=== PATIENT | male | born 1965 | race Caucasian/White ===

== ENCOUNTER 2018-12-25 01:59 | Emergency (ER) | payer BC ==
[~2018-12-25] VITALS: Ht 182.9 cm; Wt 76.4 kg
[2018-12-25] MEDS ORDERED: PERC5TAB12 PO (02:07)
[2018-12-25] MEDS ORDERED: IBUP80TA PO (02:07)
[2018-12-25] MEDS ORDERED: ZOFR4TAB16 PO (02:07)
[2018-12-25] MEDS ORDERED: NS 1,000 ML IV ONE (03:15)
[2018-12-25] MEDS ORDERED: ONDANSETRON 4MG/2ML VIAL (J2405) IV ONE (03:15)
[2018-12-25 03:49] LABS: BASO % 0.1 % (0.0-1.0); EOS % 0.1 % (0.0-3.0); HEMATOCRIT 40.1 % (42.0-52.0); HEMOGLOBIN 14.3 g/dl (13.5-17.5); LYMPH # 1.2 10^3/uL (1.5-5.0); LYMPH % 11.6 % (24.0-44.0); MEAN CORPUSCULAR HEMOGLOBIN 31.8 pg (27.0-33.0); MEAN CORPUSCULAR HGB CONC 35.7 g/dl (32.0-36.5); MEAN CORPUSCULAR VOLUME 89.3 fl (80.0-96.0); MONO # 0.7 10^3/uL (0.0-0.8); MONO % 6.5 % (0.0-5.0); NEUTROPHILS # 8.1 10^3/uL (1.5-8.5); NEUTROPHILS % 81.3 % (36.0-66.0); PLATELET COUNT, AUTOMATED 203 10^3/uL (150-450); RED BLOOD COUNT 4.49 10^6/uL (4.30-6.10)
[2018-12-25 04:17] LABS: ALBUMIN 3.9 GM/DL (3.2-5.2); ALT/SGPT 36 U/L (12-78); BILIRUBIN,DIRECT 0.3 MG/DL (0.0-0.2); BILIRUBIN,TOTAL 1.3 MG/DL (0.2-1.0); BLOOD UREA NITROGEN 25 MG/DL (7-18); C REACTIVE PROTEIN QUANTITATIV 0.38 MG/DL (0.00-0.30); CALCIUM LEVEL 8.7 MG/DL (8.5-10.1); CARBON DIOXIDE LEVEL 26 MEQ/L (21-32); CHLORIDE LEVEL 102 MEQ/L (98-107); CREATININE FOR GFR 0.91 MG/DL (0.70-1.30); GLOMERULAR FILTRATION RATE > 60.0 (>56); GLUCOSE, FASTING 108 MG/DL (70-100); LIPASE 77 U/L (73-393); POTASSIUM SERUM 3.5 MEQ/L (3.5-5.1); SODIUM LEVEL 138 MEQ/L (136-145); TOTAL PROTEIN 6.3 GM/DL (6.4-8.2)
[2018-12-25 04:19] LABS: INFLUENZA A AMPLIFICATION NEGATIVE (NEGATIVE); INFLUENZA B AMPLIFICATION NEGATIVE (NEGATIVE)
[2018-12-25 04:53] LABS: ERYTHROCYTE SEDIMENTATION RATE 2 mm/hr (0-20)
--- NOTE | 2018-12-25 07:04 | REP ---
Clinical: Nontraumatic hip pain. Technique: Frontal view of the pelvis with neutral and frog lateral views of the left hip. Findings: Osseous structures and joint spaces are intact and normal. Hip joints appear symmetric on frontal pelvic radiograph. No acute fracture dislocation. No evidence for healed injury. No significant degenerative or congenital abnormalities are appreciated. Surrounding soft tissues are unremarkable. Impression: Normal pelvis and left hip series. Electronically Signed by Bishnu Key MD 12/25/2018 06:56 A
--- NOTE | 2018-12-25 07:09 | REP ---
Clinical: Pain. Technique: AP, lateral, bilateral oblique and coned-down views of the lumbosacral spine. Findings: Alignment and lordosis maintained. No acute fracture / compression injury or subluxation. Moderate multilevel degenerative changes include endplate sclerosis with minimal marginal spurring, mild disc space narrowing and mild/moderate hypertrophic facet changes. No obvious spondylolysis. Impression: Mild/moderate multilevel degenerative spondylosis. Electronically Signed by Bishnu Key MD 12/25/2018 07:01 A
[2018-12-25] MEDS ORDERED: PROHANCE 279.3MG/ML 15ML VIAL (A9576) As Ordered ONE (07:21)
--- NOTE | 2018-12-25 08:47 | REP ---
MRI lumbar spine without and with IV contrast: History: Rule out diskitis. No comparison lumbar spine MRI study. Comparison radiographs are from December 25, 2018. Technique: Sagittal and axial T1 and T2-weighted scans are acquired in the usual fashion with and without fat saturation. Sequences include spin echo, turbo spin-echo, and STIR imaging sequences. The gadolinium enhancement dose is 50 ml of intravenous ProHance. MRI findings: There are six lumbar-type vertebral bodies. 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 There is considerable motion artifact on several of the sequences, most prominently the postcontrast sequences and T2 axial sequence. This does impair image quality. Patient motion between sequences apparently causes some misalignment of the axial images relative to the disc spaces. Vertebral body heights are preserved. Alignment is normal. There is no evidence of spondylolysis or spondylolisthesis. The tip of the conus is normal in appearance and position at the at T12-L1. There is degenerative narrowing of the L3-4 and to a lesser extent L4-5 disc spaces. There are reactive marrow changes on either side of the 03/04 disc posteriorly and to the left. There is no evidence of disc protrusion. Diffuse disc bulging is seen however indenting the ventral margin of the thecal sac. No central canal stenosis or foraminal narrowing is appreciated although there is some foraminal segment disc bulging bilaterally at L3-4. There is some contrast enhancement along the posterior margin of the bulging L3-4 disc. At L4-5, there is mild diffuse disc bulging as well. No central canal stenosis or foraminal narrowing is seen. There is mild facet hypertrophy bilaterally. The L5-S1 level shows no evidence of disc protrusion, central canal stenosis or foraminal narrowing. At L2-L3, there is disc narrowing. There are reactive marrow changes on either side of the L2-3 disc and there is evidence of a Schmorl's node formation on both sides of the disc with surrounding edema and some contrast enhancement. The end plates are not visibly eroded. There is some T2 hyperintense signal in the disc. No paravertebral inflammation is appreciated. Findings are felt to be most compatible with atypical degenerative disc marrow signal intensity changes, possibly acute Schmorl's node formation. Early diskitis is a less likely possibility. At L1-2, disc space height is normal. Signal intensity is preserved. There is some degenerative disc narrowing at T12-L1. No other disc protrusion is seen. Impression: 1. There is considerable motion related image degradation with this study. 2. There are atypical signal intensity changes in the L2-3 disc and in the adjacent endplates including contrast enhancement, however there is no endplate erosion or destruction and no paravertebral inflammation changes are seen. Findings are felt to be most compatible with atypical degenerative disc changes. Early diskitis cannot be completely excluded. Consider follow-up if symptoms and concern for diskitis persists. 3. There is diffuse disc bulging at L3-4 and to a lesser extent, L4-5. Facet hypertrophy is noted at several levels. 4. Please note that there are six lumbar type vertebrae the most cephalic of which has been designated as T12. Electronically Signed by Hector Feldman MD 12/25/2018 08:39 A
[2018-12-25 09:37] VITALS: BP 122/74
--- NOTE | 2018-12-25 19:35 | ED PDOC ---
Post-Departure Follow-Up dr han faxed formal report of mri ls spine for fu Noah Gastelum MD Dec 25, 2018 19:35
== END 2018-12-25 09:39 | disposition home or self-care (01) ==
LOC: M ED 01:59
DX: M54.5 Low back pain (principal); R11.10 Vomiting, unspecified; R56.9 Unspecified convulsions; M51.9 Unspecified thoracic, thoracolumbar and lumbosacral intervertebral disc disorder
CPT/HCPCS: 36415; 72110; 72158; 73502; 80048; 80076; 81001; 83690; 85025; 85652; 86140; 87502; 96361; 96374; 99284; A9576; J2405

== ENCOUNTER → 2021-10-02 | Outpatient (CLI) | payer BC ==
[~2021-10-02] MED LIST: IBUP80TA PO; PERC5TAB12 PO; ZOFR4TAB16 PO
== END ==
LOC: M RAD 16:52
PROVIDERS: ATTEND Family Medicine
DX: Z12.2 Encounter for screening for malignant neoplasm of respiratory organs (principal)

== ENCOUNTER 2022-08-14 10:05 | Day surgery (SDC) | payer BC ==
[~2022-08-14] VITALS: Ht 182.9 cm; Wt 74.8 kg
[~2022-08-14 10:05] MED LIST changes: +NS 1,000 ML IV ONE
[2022-08-14] MEDS ORDERED: propofoL 200 MG/20 ML VIAL As Ordered ONE ×3 (12:39→13:16)
[2022-08-14] MEDS ORDERED: LIDOCAINE 2% MDV 20ML VIAL As Ordered ONE (12:39)
[2022-08-14] MEDS ORDERED: ePHEDrine SULFATE 25 MG/5 ML(5MG/ML) SYRINGE As Ordered ONE (12:47)
[2022-08-14 13:57] VITALS: BP 149/70
[2022-08-14] MEDS ORDERED: LIDOCAINE 2% 100MG/5ML SDV (FOR ANES.) As Ordered ONE (14:10)
== END 2022-08-14 13:59 | disposition home or self-care (01) ==
LOC: M OPP 10:05
PROVIDERS: ATTEND Internal Medicine Gastroenterology
DX: Z12.11 Encounter for screening for malignant neoplasm of colon (principal); D12.6 Benign neoplasm of colon, unspecified; K64.0 First degree hemorrhoids; K57.30 Diverticulosis of large intestine without perforation or abscess without bleeding

== ENCOUNTER → 2024-03-21 | Outpatient (CLI) | payer BC ==
[~2024-03-21] MED LIST changes: -NS 1,000 ML IV ONE
[2024-03-21 09:44] LABS: BASO # 0.1 10^3/uL (0.0-0.2); BASO % 0.6 % (0.0-1.0); EOS # 0.1 10^3/uL (0.0-0.5); EOS % 1.8 % (0.0-3.0); HEMATOCRIT 45.3 % (42.0-52.0); HEMOGLOBIN 15.4 g/dl (13.5-17.5); LYMPH # 1.6 10^3/uL (1.5-5.0); LYMPH % 19.9 % (24.0-44.0); MEAN CORPUSCULAR HEMOGLOBIN 30.6 pg (27.0-33.0); MEAN CORPUSCULAR VOLUME 89.9 fl (80.0-96.0); MONO # 0.5 10^3/uL (0.0-0.8); MONO % 5.9 % (2.0-8.0); NEUTROPHILS # 5.7 10^3/uL (1.5-8.5); NEUTROPHILS % 71.5 % (36.0-66.0); PLATELET COUNT, AUTOMATED 203 10^3/uL (150-450); RED BLOOD COUNT 5.04 10^6/uL (4.30-6.10)
[2024-03-21 10:19] LABS: ALBUMIN 3.9 G/DL (3.2-5.2); ALKALINE PHOSPHATASE 52 U/L (40-129); ALT/SGPT 20 U/L (7.0-40); AST/SGOT 16 U/L (<34); BILIRUBIN,TOTAL 0.7 MG/DL (0.3-1.2); BLOOD UREA NITROGEN 26 MG/DL (9-23); CALCIUM LEVEL 9.7 MG/DL (8.3-10.6); CARBON DIOXIDE LEVEL 25 MMOL/L (20-31); CHLORIDE LEVEL 105 MMOL/L (98-107); CREATININE FOR GFR 0.82 MG/DL (0.70-1.30); GLOMERULAR FILTRATION RATE > 60.0 (>49); GLUCOSE, FASTING 117 MG/DL (74-106); POTASSIUM SERUM 4.3 MMOL/L (3.5-5.1); SODIUM LEVEL 139 MMOL/L (136-145); TOTAL PROTEIN 7.2 G/DL (5.7-8.2)
== END ==
LOC: M EKG 09:14
PROVIDERS: ATTEND Family Medicine
DX: Z01.818 Encounter for other preprocedural examination (principal); R00.1 Bradycardia, unspecified